=== PATIENT | female | born 2000 | race Caucasian/White ===

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

== ENCOUNTER 2020-02-20 01:45 | Emergency (ER) | payer MEDICAID, OTHER ==
[2020-02-20] MEDS ORDERED: Dicyclomine 20 MG/2 ML SDV IM ONE (02:10)
[2020-02-20] MEDS ORDERED: GI Cocktail Oral Solution 30 ML PO ONE (02:10)
[2020-02-20 02:48] LABS: CHLORIDE,CL 102 mmol/L (98-107); SODIUM,NA 138 mmol/L (136-145)
[2020-02-20 02:49] LABS: ANION GAP 12.4 mmol/L (10-20)
--- NOTE | 2020-02-20 03:43 | EDM.PDOC ---
ED HPI GENERAL MEDICAL PROBLEM - General Chief Complaint: Abdominal Pain Stated Complaint: Abdominal Pain Time Seen by Provider: 02/20/20 02:00 - History of Present Illness INITIAL COMMENTS - FREE TEXT/NARRATIVE: Patient comes emergency department today with complaints of abdominal pain in the left upper quadrant in the epigastric region. This patient for the past year has struggled with recurrent intermittent epigastric and left upper quadrant abdominal pain. She has been evaluated multiple times at [place] in [facility] and they were unable to identify any cause of her left upper quadrant abdominal pain. She was supposed to have an ultrasound a couple of months ago although she was unable to make it to evaluate her gallbladder because she had to go to work. She has not attempted to reschedule her ultrasound appointment. She has had an upper GI scope this summer that was unremarkable according to the patient. Today she had a recurrence of her chronic recurrent epigastric left upper quadrant abdominal pain. This pain gets worse when she eats. She vomited at home and noted that he had some coffee- ground appearance to it. She vomited times once. Her pain is intermittent and constant pain in that region. She has not had no recent falls trauma or injury. She has no hematuria dysuria or urinary frequency. No flank pain. She has no black or tarry stools. No constipation or diarrhea. Treatments WOOL SAMPLER: Reports: Other (see below) Other Treatments WOOL SAMPLER: Marijuana Left Upper Abdominal Pain Pain Score (Numeric/FACES): 8 - Related Data Allergies Allergy/AdvReac Type Severity Reaction Status Date / Time cefdinir [From Omnicef] Allergy Hives Verified 02/20/20 02:01 Home Meds: Home Meds Venlafaxine [Effexor XR] 300 mg PO DAILY 11/11/18 [History] hydrOXYzine HCL [Atarax] 25 mg PO ASDIRECTED PRN 11/11/18 [History] Ondansetron [Zofran] 4 mg Q4H PRN 11/30/18 [History] LORazepam [Ativan] 1 mg PO BEDTIME PRN #20 tablet 05/12/19 [Rx] Omeprazole 1 tab PO DAILY 05/12/19 [History] QUEtiapine [SEROquel] 50 mg PO BEDTIME 05/12/19 [History] Sucralfate [Carafate] 1 gm PO QIDACANDBED #120 tablet 02/20/20 [Rx] Past Medical History Cardiovascular History: Reports: Hypertension, Other (See Below) Other Cardiovascular History: palpitations Respiratory History: Reports: Asthma Gastrointestinal History: Reports: GERD, Irritable Bowel Syndrome Psychiatric History: Reports: Addiction, Anxiety, Bipolar, Depression, PTSD, Suicide Attempt, Suicidal Ideation, Other (See Below) Other Psychiatric History: Borderline personality disorder. Smokes Marijuana Daily Endocrine/Metabolic History: Reports: Obesity/BMI 30+ Social & Family History - Tobacco Use Tobacco Use Status *Q: Current Every Day Tobacco User Years of Tobacco use: 1 Packs/Tins Daily: 0.5 - Recreational Drug Use Recreational Drug Use: Yes Recreational Drug Type: Reports: Marijuana/Hashish Recreational Drug Use Frequency: Daily ED ROS GENERAL - Review of Systems Review Of Systems: Comprehensive ROS is negative, except as noted in HPI. ED EXAM, GI/ABD - Physical Exam Exam: See Below Exam Limited By: No Limitations General Appearance: Alert, WD/WN, No Apparent Distress Ears: Normal External Exam Nose: Normal Inspection Throat/Mouth: Normal Inspection Head: Atraumatic, Normocephalic Neck: Normal Inspection, Supple, Non-Tender Respiratory/Chest: No Respiratory Distress, Lungs Clear, Normal Breath Sounds, Chest Non-Tender Cardiovascular: Normal Peripheral Pulses, Regular Rate, Rhythm GI/Abdominal Exam: Normal Bowel Sounds, Soft, Tender (She has some mild tenderness in the epigastric and the left upper quadrant. Without guarding rebound. No peritoneal signs. No hernia.) (Female) Exam: Deferred Rectal (Female) Exam: Deferred Back Exam: Normal Inspection, Full Range of Motion. No: CVA Tenderness (L), CVA Tenderness (R) Extremities: Normal Inspection, Normal Range of Motion, Non-Tender, No Pedal Edema, Normal Capillary Refill Neurological: Alert, Oriented, Normal Cognition, No Motor/Sensory Deficits Psychiatric: Normal Affect, Normal Mood Skin Exam: Warm, Dry, Intact, Normal Color, No Rash Lymphatic: No Adenopathy Course - Vital Signs Last Recorded V/S: Last Vital Signs Temp 98 F 02/20/20 02:01 Pulse 105 H 02/20/20 02:01 Resp 18 02/20/20 02:01 BP 102/67 02/20/20 02:01 Pulse Ox 99 02/20/20 02:01 - Orders/Labs/Meds Orders: Active Orders 24 hr Category Date Time Status CULTURE URINE [RM] Stat Lab 02/20/20 02:27 Received Labs: Laboratory Tests 02/20/20 02/20/20 02/20/20 Range/Units 02:24 02:24 02:27 WBC 8.3 (4.0-10.0) x10^3/uL RBC 5.12 (4.00-5.50) x10^6/uL Hgb 14.3 (12.0-16.0) g/dL Hct 42.2 (33.0-47.0) % MCV 82.4 (78.0-93.0) fL MCH 27.9 (26.0-32.0) pg MCHC 33.9 (32.0-36.0) g/dL RDW Coeff of Miya 13.0 (10.0-15.0) % Plt Count 294 (130-400) x10^3/uL Neut % (Auto) 54.6 (50.0-80.0) % Lymph % (Auto) 35.4 (25.0-50.0) % [place] % (Auto) 7.4 (2.0-11.0) % Eos % (Auto) 2.1 (0.0-4.0) % Baso % (Auto) 0.5 (0.2-1.2) % Sodium 138 (136-145) mmol/L Potassium 3.4 L (3.5-5.1) mmol/L Chloride 102 (98-107) mmol/L Carbon Dioxide 27 (21-32) mmol/L Anion Gap 12.4 (10-20) mmol/L BUN 10 (7-18) mg/dL Creatinine 1.0 (0.55-1.02) mg/dL Est Cr Clr Drug Dosing 80.75 mL/min Estimated GFR (MDRD) > 60 Glucose 84 (74-106) mg/dL Calcium 9.0 (8.5-10.1) mg/dL Corrected Calcium 9.32 (8.5-10.1) mg/dL Total Bilirubin 0.4 (0.2-1.0) mg/dL AST 17 (15-37) U/L ALT 35 (14-59) U/L Alkaline Phosphatase 81 (46-116) U/L C-Reactive Protein 1.3 H (<=0.9) mg/dL Total Protein 7.7 (6.4-8.2) g/dL Albumin 3.6 (3.4-5.0) g/dL Globulin 4.1 Albumin/Globulin Ratio 0.88 Urine Color Yellow (YELLOW) Urine Appearance Slightly cloudy H (CLEAR) Urine pH 5.5 (5.0-8.0) Ur Specific [place] >=1.030 Urine Protein 30 H (NEGATIVE) mg/dL Urine Glucose (UA) Negative (NEGATIVE) mg/dL Urine Ketones Negative (NEGATIVE) mg/dL Urine Occult Blood Trace-intact H (NEGATIVE) Urine Nitrite Negative (NEGATIVE) Urine Bilirubin Small H (NEGATIVE) Urine Urobilinogen 0.2 (0.2) EU/dL Ur Leukocyte Esterase Small H (NEGATIVE) Urine RBC 0-5 (NOT SEEN) /HPF Urine WBC 5-10 H (NOT SEEN) /HPF Ur Squamous Epith Cells Moderate H (NEGATIVE) /HPF Urine Bacteria Few H (NEGATIVE) /HPF Urine HCG, Qual (NEGATIVE) Urine Opiates Screen (NEGATIVE) Ur Buprenorphine Scrn (NEGATIVE) Ur Oxycodone Screen (NEGATIVE) Ur EDDP (Meth Metab) (NEGATIVE) Urine Methadone Screen (NEGATIVE) Ur Barbituates Screen (NEGATIVE) Ur Tricyclics Screen (NEGATIVE) Ur Phencyclidine Scrn (NEGATIVE) Ur Amphetamines Screen (NEGATIVE) U Methamphetamines Scrn (NEGATIVE) Urine MDMA Screen (NEGATIVE) U Benzodiazepines Scrn (NEGATIVE) Urine Cocaine Screen (NEGATIVE) U Marijuana (THC) Screen (NEGATIVE) 02/20/20 02/20/20 Range/Units 02:27 03:30 WBC (4.0-10.0) x10^3/uL RBC (4.00-5.50) x10^6/uL Hgb (12.0-16.0) g/dL Hct (33.0-47.0) % MCV (78.0-93.0) fL MCH (26.0-32.0) pg MCHC (32.0-36.0) g/dL RDW Coeff of Miya (10.0-15.0) % Plt Count (130-400) x10^3/uL Neut % (Auto) (50.0-80.0) % Lymph % (Auto) (25.0-50.0) % [place] % (Auto) (2.0-11.0) % Eos % (Auto) (0.0-4.0) % Baso % (Auto) (0.2-1.2) % Sodium (136-145) mmol/L Potassium (3.5-5.1) mmol/L Chloride (98-107) mmol/L Carbon Dioxide (21-32) mmol/L Anion Gap (10-20) mmol/L BUN (7-18) mg/dL Creatinine (0.55-1.02) mg/dL Est Cr Clr Drug Dosing mL/min Estimated GFR (MDRD) Glucose (74-106) mg/dL Calcium (8.5-10.1) mg/dL Corrected Calcium (8.5-10.1) mg/dL Total Bilirubin (0.2-1.0) mg/dL AST (15-37) U/L ALT (14-59) U/L Alkaline Phosphatase (46-116) U/L C-Reactive Protein (<=0.9) mg/dL Total Protein (6.4-8.2) g/dL Albumin (3.4-5.0) g/dL Globulin Albumin/Globulin Ratio Urine Color (YELLOW) Urine Appearance (CLEAR) Urine pH (5.0-8.0) Ur Specific [place] Urine Protein (NEGATIVE) mg/dL Urine Glucose (UA) (NEGATIVE) mg/dL Urine Ketones (NEGATIVE) mg/dL Urine Occult Blood (NEGATIVE) Urine Nitrite (NEGATIVE) Urine Bilirubin (NEGATIVE) Urine Urobilinogen (0.2) EU/dL Ur Leukocyte Esterase (NEGATIVE) Urine RBC (NOT SEEN) /HPF Urine WBC (NOT SEEN) /HPF Ur Squamous Epith Cells (NEGATIVE) /HPF Urine Bacteria (NEGATIVE) /HPF Urine HCG, Qual Negative (NEGATIVE) Urine Opiates Screen Negative (NEGATIVE) Ur Buprenorphine Scrn Negative (NEGATIVE) Ur Oxycodone Screen Negative (NEGATIVE) Ur EDDP (Meth Metab) Negative (NEGATIVE) Urine Methadone Screen Negative (NEGATIVE) Ur Barbituates Screen Negative (NEGATIVE) Ur Tricyclics Screen Negative (NEGATIVE) Ur Phencyclidine Scrn Negative (NEGATIVE) Ur Amphetamines Screen Negative (NEGATIVE) U Methamphetamines Scrn Negative (NEGATIVE) Urine MDMA Screen Negative (NEGATIVE) U Benzodiazepines Scrn Negative (NEGATIVE) Urine Cocaine Screen Negative (NEGATIVE) U Marijuana (THC) Screen Positive H (NEGATIVE) Meds: Medications Discontinued Medications Generic Name Dose Route Start Last Admin Trade Name Papito PRN Reason Stop Dose Admin Al Hydroxide/Mg Hydroxide 30 ml 02/20/20 02:10 02/20/20 02:15 Gi Cocktail PO 02/20/20 02:11 30 ml ONETIME ONE Administration Dicyclomine HCl 20 mg 02/20/20 02:10 02/20/20 02:15 Bentyl IM 02/20/20 02:11 20 mg ONETIME ONE Administration - Re-Assessments/Exams Free Text/Narrative Re-Assessment/Exam: 02/19/20 Laboratory evaluation is really very unremarkable. She has a normal white blood cell count at 8.3. Potassium is 3.4 sodium 138 normal creatinine. Liver enzymes are normal as well. She has a mild elevation of her CRP at 1.3 which is really unremarkable. Urinalysis does have some WBCs as well as small leukocyte esterase. Although it is moderately contaminated with epithelial cells and she is asymptomatic at this time. We will culture her urine and follow that. She was given a GI cocktail as well as 20 mg of Bentyl IM. She had almost immediate relief of her epigastric left upper quadrant pain with a GI cocktail. Work-up is really unremarkable. Reexamination of her abdomen shows a soft nontender nondistended abdomen. Despite her having an EGD this summer she still could have some development of peptic ulcer disease especially with the coffee- ground emesis today. We will increase her omeprazole and start her on Carafate. Follow her urine culture. She is comfortable with this plan and her questions are answered. Departure - Departure Time of Disposition: 03:20 Disposition: Home, Self-Care 01 Clinical Impression: GERD (gastroesophageal reflux disease) Qualifiers: Esophagitis presence: esophagitis presence not specified Qualified Code(s): K21.9 - Gastro-esophageal reflux disease without esophagitis - Discharge Information *PRESCRIPTION DRUG MONITORING PROGRAM REVIEWED*: Not Applicable *COPY OF PRESCRIPTION DRUG MONITORING REPORT IN PATIENT JENNA: Not Applicable Prescriptions: Sucralfate [Carafate] 1 gm PO QIDACANDBED #120 tablet Instructions: Gastroesophageal Reflux Disease, Adult, [id number] Referrals: Petra Terry, ANNUAL GIVING MANAGER [Primary Care Provider] - Forms: ED Department Discharge Additional Instructions: Maalox or Mylanta OTC for acute abd pain. Increase your Omeprazole to 2 tablets daily for the next 2 weeks. Start Carafate 1 tablet 4 times a day 1/2hr prior to meals and bedtime. Rx to [facility]. Consider getting tested for H Pylori with your PCP. Return to the ED if new or worsening symptoms. Follow up with PCP in 2 weeks for recheck. Sepsis Event Note (ED) - Evaluation Sepsis Screening Result: No Definite Risk - My Orders Last 24 Hours: My Active Orders 02/20/20 02:27 CULTURE URINE [RM] Stat - Assessment/Plan Last 24 Hours: My Active Orders 02/20/20 02:27 CULTURE URINE [RM] Stat
[2020-02-20 04:10] LABS: BUPRENORPHINE,URINE NEGATIVE (NEGATIVE); MARIJUANA,URINE POSITIVE (NEGATIVE); METHYLENEDIOXYMETHAMP,UR NEGATIVE (NEGATIVE); PHENCYCLIDINE,URINE NEGATIVE (NEGATIVE)
== END 2020-02-20 03:55 | disposition home or self-care (01) ==
LOC: VM.ED 01:45
DX: K21.9 Gastro-esophageal reflux disease without esophagitis (principal); I10 Essential (primary) hypertension; J45.909 Unspecified asthma, uncomplicated; F41.9 Anxiety disorder, unspecified; F31.9 Bipolar disorder, unspecified; F43.10 Post-traumatic stress disorder, unspecified; F17.210 Nicotine dependence, cigarettes, uncomplicated; E66.9 Obesity, unspecified; Z68.43 Body mass index [BMI] 50.0-59.9, adult; Z79.899 Other long term (current) drug therapy; Z88.1 Allergy status to other antibiotic agents
CPT/HCPCS: 36415; 80053; 80305; 81001; 81025; 85025; 86140; 87086; 96372; 99284; A9270; J0500